=== PATIENT | male | born 1990 | race Caucasian/White ===

== ENCOUNTER 2021-02-17 08:40 | Emergency (ER) | payer MEDICAID, SELFPAY ==
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
[2021-02-17 08:46] VITALS: BP 140/91; PULSE 63; RESP 16; TEMP 36.3; O2SAT 98
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
--- NOTE | 2021-02-17 08:59 | NUR.NOTE ---
Nursing Note: Referral given to Care Management, pt needs to establish care with routine follow up. Lianna Dubois
== END 2021-02-17 09:45 | disposition home or self-care (01) ==
PROVIDERS: Emergency Provider Student in an Organized Health Care Education/Training Program
DX: M25.511 Pain in right shoulder (principal); S92.514A Nondisplaced fracture of proximal phalanx of right lesser toe(s), initial encounter for closed fracture; V86.56XA Driver of dirt bike or motor/cross bike injured in nontraffic accident, initial encounter
CPT/HCPCS: 28510; 99281; 73050; 73630

== ENCOUNTER 2022-07-06 17:56 | Emergency (ER) | payer MEDICAID, SELFPAY ==
[2022-07-06 18:00] VITALS: BP 132/80; PULSE 82; RESP 12; TEMP 36.4; O2SAT 95
--- NOTE | 2022-07-06 18:37 | W.ED.GENAD ---
Discharge Plan Disposition Patient Disposition: Home Condition: Stable Discharge Details Clinical Impression: Generalized tonic-clonic seizure Primary Care Provider: Unknown,Unknown ED Provider: Yeyo Sommers Home Meds and New Rx's Prescriptions: New levetiracetam [Keppra] 500 mg tablet 500 mg PO BID Qty: 60 2RF Discharge Instructions Instructions: Cocaine Abuse (ED), Recurrent Seizures in Adults (ED) Additional Instructions: Please do not operate motor vehicle or heavy machinery until cleared by neurology. Please follow-up with neurology. Call to schedule an appointment. Please take antiepileptic seizure medication Keppra as prescribed. Your next dose should be tomorrow morning. Please contact your primary care physician to arrange follow-up. Return to the ER immediately for any worsening or new concerning symptoms. Referrals: [facility] [Provider Group] Medical Decision Making 31-year-old male prior history of epilepsy, not currently on antiepileptics, here after generalized tonic-clonic seizure that lasted a few minutes, this in the setting of recent cocaine use. Patient is currently neurologically intact. He has had seizure work-up in the past. 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 Considered arrhythmia. Screening EKG was reviewed and interpreted by me: Sinus rhythm 73 bpm, normal axis, nondiagnostic, please see report. Patient was given Keppra 1 g IV for seizure prophylaxis. Plan to discharge on Keppra and has not follow-up with neurology. He was instructed to not use cocaine. He was instructed to not operate heavy machinery or operate a motor vehicle until cleared by neurology. Disposition decision was made weighing the risks and benefits of hospitalization versus outpatient treatment, the risk for further decompensation, and the patient's wishes. The patient was stable and requested discharge. Prior to discharge, my usual and customary return precautions were reviewed with the patient - this included follow-up instructions and reason to return to the emergency department if condition worsens, does not improve as expected, or other new concerns arise. HPI General Mode of arrival: ambulatory. Date/Time Provider Initiated Documentation: 07/06/22 18:10. Limitations to Documentation: no limitations. Information obtained by: patient. HPI Narrative: 31-year-old male with history of seizures in the past, diagnosed with epilepsy as a child, last seizure a few years ago, here after generalized tonic-clonic seizure that was witnessed by girlfriend. Seizure occurred a couple hours after snorting cocaine. Seizure was full body. He is unconscious for a couple minutes and then confused for 5 minutes. He did bite his tongue. History and review of systems limited secondary to altered mental status during seizure. Patient denies headache. No numbness or tingling. No weakness. No visual changes. Related Data Home Medications Medication Instructions Recorded Confirmed levetiracetam 500 mg tablet 500 mg PO BID #60 tabs 07/06/22 (Keppra) Previous Rx's Medication Instructions Recorded levetiracetam 500 mg tablet 500 mg PO BID #60 tabs 07/06/22 (Keppra) Allergies Allergy/AdvReac Type Severity Reaction Status Date / Time No Known Allergies Allergy Unverified 02/17/21 08:52 General Stated Complaint: Seizure PATRICK: 3 Review of Systems All systems reviewed & are unremarkable except as noted in HPI and below Constitutional Constitutional: Denies fever(s) and Denies headache(s) ENT Ears, Nose, Mouth, and Throat: Denies headache(s) Neurologic Neurologic: Reports as per HPI, Denies headache(s) and Reports seizure-like activity PFSH All Active Problems Acute pain of right shoulder (Acute) Broken toe (Acute) Generalized tonic-clonic seizure (Acute) Social History Smoking/Tobacco Use Status: Former Tobacco Use Smoking risk assessment performed?: Yes Alcohol Intake: current Alcohol Intake frequency: a few times a week Drug use: Daily Substance use type: marijuana Do you feel safe at home: Yes Do you feel safe in your relationship?: Yes Exam Const General: cooperative and no acute distress [facility] Head: normocephalic and atraumatic Mouth: moist mucous membranes Other: Superficial laceration right eye with no active bleeding Eyes Sclera: normal sclerae EOM: EOM intact bilaterally Neck Neck: trachea midline and supple Resp Auscultation: clear to auscultation bilaterally, no rales, no rhonchi and no wheezes Cardio Rate: regular rate and not tachycardic Rhythm: regular rhythm GI Palpation: soft, not firm, no guarding, no masses, not rigid and nontender Skin General skin exam: no rashes or lesions noted Neuro General: patient alert, patient awake, patient oriented x3 and tone normal Cranial Nerves: CN's II-XI intact bilaterally Cognition: normal cognition Speech: speech normal Motor: muscle tone normal throughout and strength 5/5 throughout Sensory Exam: no sensory deficits noted Extrem General: no edema Psych Appearance: grossly normal Mental Status: mental status grossly normal Speech and Movement: speech and movement normal Course Vital Signs Vital signs: Vital Signs Temperature 36.4 C L 07/06/22 18:00 Pulse 82 07/06/22 18:00 Respiratory Rate 12 07/06/22 18:00 Blood Pressure 132/80 07/06/22 18:00 Pulse Oximetry 95 07/06/22 18:00 Temperature 36.4 C L 07/06/22 18:00 Temperature Source Oral 07/06/22 18:00 Pulse 82 07/06/22 18:00 Respiratory Rate 12 07/06/22 18:00 Blood Pressure 132/80 07/06/22 18:00 Blood Pressure Position Sitting 07/06/22 18:00 Pulse Oximetry 95 07/06/22 18:00 Oxygen Delivery Method Room Air 07/06/22 18:00 Oxygen Flow Rate 0 07/06/22 18:00 Pain Level 3 07/06/22 18:00
[2022-07-06 19:14] LABS: Abs Immature Grans 0.04 10^3/uL (0.0-0.06); Absolute Basophil Count 0.03 10^3/uL (0.0-0.2); Absolute Eosinophil Count 0.23 10^3/uL (0.0-0.7); Absolute Lymphocyte Count 2.33 10^3/uL (1.2-3.4); Absolute Monocyte Count 0.58 10^3/uL (0.1-0.8); Absolute Neutrophil Count 4.27 10^3/uL (1.2-6.7); Basophils % 0.4; Eosinophils % 3.1; HCT 49.1 % (40.0-50.0); HGB 17.4 g/dL (13.5-17.5); Immature Grans % 0.5; Lymphocytes % 31.1; MCHC 35.4 % (32.0-36.0); MCV 90 fL (80-95); MPV 9.8 fL (8.0-11.0); Monocytes % 7.8; Neutrophils % 57.1; Platelet Count 262 10^3/uL (130-400); RBC 5.44 10^6/uL (4.36-5.78); RDW 12.3 % (11.8-14.1); RDW-SD 40.4 fL; WBC 7.48 10^3/uL (4.4-10.8)
[2022-07-06 19:28] LABS: ALT 96 U/L (16-63); AST 29 U/L (15-37); Albumin 4.7 g/dL (3.4-5.0); Alkaline Phosphatase 55 U/L (46-116); Anion Gap 10.3 mmol/L (3-11); BUN 12 mg/dL (7-18); Bilirubin, Total 0.6 mg/dL (0.2-1.0); CO2 27.7 mmol/L (21.0-32.0); Calcium 9.7 mg/dL (8.5-10.1); Chloride 99 mmol/L (98-107); Estimated GFR 103.19 (mL/min/1.73m2); Glucose 102 mg/dL (74-106); Magnesium 2.3 mg/dL (1.8-2.4); Potassium 3.7 mmol/L (3.5-5.1); Sodium 137 mmol/L (136-145)
[2022-07-06] MEDS: levETIRAcetam 1,000 MG in Normal Saline 100 ML 400 MG IVPB (19:32)
[2022-07-06] MEDS: Normal Saline 1,000 ML 1000 ML IV (19:32)
--- NOTE | 2022-07-06 20:00 | RT.EKG_ITS ---
APPROVED REPORT Exam: Resting ECG Reason for Exam: seizure Patient Location: E HR:73 bpm ECG Measurements Heart Rate 73 AXIS DC 70 P -84 QRSd 103 QRS 28 QT 380 T 34 QTc 418 Conclusion Sinus or ectopic atrial rhythm...P axis (-45,135) nsr, artificat
== END 2022-07-06 20:28 | disposition home or self-care (01) ==
PROVIDERS: Emergency Provider Student in an Organized Health Care Education/Training Program
DX: G40.409 Other generalized epilepsy and epileptic syndromes, not intractable, without status epilepticus (principal); F14.90 Cocaine use, unspecified, uncomplicated; S05.31XA Ocular laceration without prolapse or loss of intraocular tissue, right eye, initial encounter; X58.XXXA Exposure to other specified factors, initial encounter; Y99.8 Other external cause status
CPT/HCPCS: 80053; 93005; 96361; 96365; 99284; 83735; 85025; 93010; J1953